=== PATIENT | male | born 1975 | race Caucasian/White ===

== ENCOUNTER 2016-06-25 14:36 | Emergency (ER) | payer OTHER ==
[~2016-06-25] VITALS: Wt 78.0 kg
[2016-06-25 16:23] LABS: URINE BLOOD (Dip) POC 2+ (NEGATIVE)
[2016-06-25] MEDS ORDERED: CEFTRIAXONE 250 MG INJ IM ONE (16:30)
[2016-06-25] MEDS ORDERED: AZITHROMYCIN 250 MG TAB PO ONE (16:30)
[2016-06-25] MEDS ORDERED: LIDOCAINE 1% (MDV) 20 ML INJ SC ONE (16:30)
[2016-06-25] MEDS ORDERED: CIPR500T4 PO (17:01)
[2016-06-25] MEDS ORDERED: PHEN-538 PO (17:01)
--- NOTE | 2016-06-25 17:09 | ERD ---
ER Documentation Chief Complaint Date/Time DATE: 06/25/16 TIME: 17:04 Chief Complaint dysuria for the past few days. mild abd pain, nausea and vomiting HPI 41 year old male presents to the emergency department complaining of painful urination for the past three days. Patient states "I think I have a UTI." Patient states he is sexually active with condoms. He admits to have penile discharge. He states he had mild abdominal pain with nausea, vomiting, diarrhea three days ago, he states he was food poisoned but that has resolved. He denies any abdominal pain now. He denies hematuria ROS All systems reviewed and are negative except as per history of present illness. Medications Home Meds Active Scripts Phenazopyridine Hcl* (Pyridium*) 200 Mg Tab, 200 MG PO TID Y for URINARY PAIN, # 6 TAB Prov:CHRISTIANO ÁLVAREZ PA-C 06/25/16 Ciprofloxacin Hcl* (Ciprofloxacin Hcl*) 500 Mg Tablet, 500 MG PO BID for 7 Days , TAB Prov:CHRISTIANO ÁLVAREZ PA-C 06/25/16 PMhx/Soc Medical and Surgical Hx: pt denies Medical Hx, pt denies Surgical Hx Hx Alcohol Use: No Hx Substance Use: No Hx Tobacco Use: No Smoking Status: Never smoker Physical Exam Vitals Vital Signs Date Time Temp Pulse Resp B/P Pulse Ox O2 Delivery O2 Flow Rate FiO2 06/25/16 14:41 98.5 91 20 140/76 98 Physical Exam GENERAL: well-developed/well-nourished, in no apparent distress, non-toxic appearing HENT: NC/AT, moist mucous membranes EYES: Conjunctiva normal NECK: Supple, no lymphadenopathy PULM: CTA bilaterally, no rales, rhonchi, or wheezing heard CV: Normal S1S2, RRR, good capillary refill GI: Soft, non-distended, tender to palpation Normal bowel sounds, no masses or organomegaly felt on exam No gross peritonitis, no bruits Negative Rovsing, negative Robison, negative McBurney's point, Negative CVAT BACK: No masses EXT: No clubbing, cyanosis, or edema NEURO: Alert and Orientated SKIN: Intact, normal turgor PSYCH: Normal mood and mentation GENERAL: well-developed/well-nourished, in no apparent distress, non-toxic appearing HENT: NC/AT, moist mucous membranes EYES: Conjunctiva normal NECK: Supple, no lymphadenopathy PULM: CTA bilaterally, no rales, rhonchi, or wheezing heard CV: Normal S1S2, RRR, good capillary refill GI: Soft, non-distended, non-tender to palpation Normal bowel sounds, no masses or organomegaly felt on exam No gross peritonitis, no bruits Negative Rovsing, negative Robison, negative McBurney's point, Negative CVAT BACK: No masses EXT: No clubbing, cyanosis, or edema NEURO: Alert and Orientated SKIN: Intact, normal turgor PSYCH: Normal mood and mentation Results 24 hrs Laboratory Tests Test 06/25/16 16:24 Bedside Urine Blood 2+ Bedside Urine Glucose (UA) Negative Bedside Urine Ketones (LAB) Negative Bedside Urine Leukocyte Esterase (L 2+ Bedside Urine Nitrite (LAB) Negative Bedside Urine Protein (LAB) Trace Bedside Urine pH (LAB) 5.5 Current Medications Medications (Trade) Dose Ordered Sig/Bib Route PRN Reason Start Time Stop Time Status Last Admin Dose Admin Azithromycin (Zithromax) 1,000 mg ONCE ONCE PO 06/25/16 16:30 06/25/16 16:31 DC 06/25/16 16:45 Ceftriaxone Sodium (Rocephin) 250 mg ONCE ONCE IM 06/25/16 16:30 06/25/16 16:31 DC 06/25/16 16:45 Lidocaine (Xylocaine 1% (Mdv) 20 ml) 20 ml ONCE ONCE SC 06/25/16 16:30 06/25/16 16:31 DC 06/25/16 16:45 Procedures/MDM This is a 41-year-old male presenting to the emergency room complaining of dysuria for 3 days along with penile discharge, this is likely due to gonorrhea and chlamydia. Other differentials include but not limited to urinary tract infection, prostatitis. I have a low suspicion for pyelonephritis. urine dipstick was done and a urine culture was sent out. Urine dipstick showed +2 leukocyte Estrace. In the ED patient was treated with 1000 mg of azithromycin and 200 mg IM of ceftriaxone. Patient is stable for discharge to follow-up with his primary care physician. Discussed return to the ER for any worsening symptoms. Patient understands and agrees with this plan. Prescription for Cipro for the next 7 days also provided Departure Diagnosis: Primary Impression: Dysuria Condition: Stable Patient Instructions: Dysuria Referrals: (Family) NO PRIMARY,CARE PHYSICIAN (PCP) Additional Instructions: FOLLOW UP WITH YOUR PRIMARY CARE PHYSICIAN TOMORROW.Return to this facility if you are not improving as expected. Take all medicines as directed. Return to this facility if you are not improving as expected. CHRISTIANO ÁLVAREZ PA-C Jun 25, 2016 17:09
[2016-06-25 17:11] VITALS: BP 122/68; PULSE 85; RESP 18; TEMP 98.5
== END 2016-06-25 17:21 | disposition home or self-care (01) ==
LOC: FTE 14:36
DX: R30.0 Dysuria (principal)
CPT/HCPCS: 81003; 87086; 87591; 96372; J0696; Z7502; Z7610